=== PATIENT | female | born 1990 | race Hispanic/Latino ===

== ENCOUNTER → 2018-05-13 11:40 | Outpatient (CLI) | payer OTHER, MEDICAID, SELFPAY ==
--- NOTE | 2018-05-13 | DI.US.S_ITS ---
PROCEDURE: US OB <= 14 WEEKS FETUS INDICATIONS: SIZE AND DATES OUTSIDE/PRIOR DATING DATA: Last menstrual period (LMP): 03/25/18. LMP-based estimated date of delivery (DENYS): 12/30/17. First dating scan (date and location): 05/13/18. Estimated date of delivery (DENYS) from first dating scan: 01/05/19. TECHNIQUE: Real-time scanning was performed of the fetus and maternal pelvic organs, with image documentation. Endovaginal scanning was also performed to better visualize the fetus and maternal ovaries. COMPARISON: [facility], , OB COMPLETE 14WKS OR MORE, 03/30/2016, 17:04. FINDINGS: Embryo: [place]-rump length measures 5 mm corresponding to 6 weeks 1 day. Heart rate measures 123 beats per minute. Measurement variability in dating: +/- 4 weeks by LMP, +/- 7 days by mean sac diameter (use before 6 weeks gestation if crown-rump length not able to be measured), +/- 5 days by crown-rump length (up to 8 weeks 6 days gestation), +/- 7 days by crown-rump length (up to 13 weeks 6 days gestation). Maternal organs: Ovaries within normal limits. Limited images through the kidneys demonstrate no hydronephrosis. IMPRESSION: 6 week 1 day single living IUP. Dictated by: Deuce BRAVO Interpreted: Natasha Payne MD on 05/13/2018 at 14:06 Approved by: Prosper Paiz M.D. on 05/16/2018 at 10:59
== END ==
PROVIDERS: Visit Provider Nurse Practitioner Family
DX: Z36.89 Encounter for other specified antenatal screening (principal); Z3A.01 Less than 8 weeks gestation of pregnancy
CPT/HCPCS: 76801; 76817

== ENCOUNTER → 2018-08-04 16:05 | Outpatient (CLI) | payer OTHER, MEDICAID, SELFPAY ==
--- NOTE | 2018-08-04 | DI.US.S_ITS ---
PROCEDURE: US OB >= 14 WEEKS FETUS INDICATIONS: ANATOMY SCAN OUTSIDE/PRIOR DATING DATA: Last menstrual period (LMP): 03/25/18. LMP-based estimated date of delivery (DENYS): 12/30/17. First dating scan (date and location): 05/13/18. Estimated date of delivery (DENYS) from first dating scan: 01/05/19. TECHNIQUE: Real-time scanning was performed of the fetus, with image documentation and biometric measurements. Endovaginal scanning: No COMPARISON: [facility], OB <= 14 WEEKS FETUS, 05/13/2018, 12:14. FINDINGS: General: A single living intrauterine gestation is present. Presentation: Transverse Placenta: Placental position is posterior, and low lying with the inferior 2 cm above the internal cervical os. Amniotic fluid index: 11.2 cm, normal range is 5-24 cm. heart rate: 143 beats per minute. Maternal cervical canal: 4.7 cm long. Normal lower limit is 2.5 cm. biometrics: Biparietal diameter: 19 weeks 1 day Head circumference: 19 weeks 0 days Abdominal circumference: 19 weeks 2 days Femur length: 18 weeks 2 days Estimated gestational age from initial scan: 18 weeks 0 days Composite gestational age from present scan: 18 weeks 5 days Estimated weight and percentile: 262 g; 46 percentile Measurement variability for biometric dating: +/- 7 days from 14 weeks to 15 weeks 6 days gestation, +/- 10 days from 16 weeks to 21 weeks 6 days gestation, +/- 2 weeks from 22 weeks to 27 weeks 6 days gestation, +/- 3 weeks for 28 weeks gestation or later. weight reference: 4500 g or EFW >90/95% is considered macrosomia or large for gestational age. EFW <10% is small for gestational age. EFW 5% or less is considered intra-uterine growth restriction. Anatomic survey: Neuro: Ventricles are non-dilated at less than 10 mm. Cisterna magna is normal at 3-11 mm. Cerebellum is normal in size and morphology. Nuchal skin fold: Normal at less than 6 mm between 14-21 weeks gestational age. Face: Nose and lips, facial profile are normal. Spine: No evidence for spina bifida. Heart: 4-chambered heart is present, with normal ventricular outflow tracts. Diaphragm: Diaphragm is intact. Stomach: Left-sided stomach is present. Kidneys: No hydronephrosis. Normal is less than 5 mm in 2nd trimester, less than 7 mm in 3rd trimester. Cord: 3-vessel cord has orthotopic insertion. Bladder: Normal in size. Extremities: All 4 extremities identified. IMPRESSION: 1. Single living IUP redemonstrated and interval growth is normal. 2. Normal anatomic survey. 3. Low lying placenta. Followup recommended. Dictated by: Deuce Mackey [facility] Interpreted: Mark De La Rosa MD on 08/05/2018 at 9:29 Approved by: Mark De La Rosa M.D. on 08/05/2018 at 11:56
== END ==
PROVIDERS: Visit Provider Family Medicine
DX: Z36.89 Encounter for other specified antenatal screening (principal); Z3A.18 18 weeks gestation of pregnancy
CPT/HCPCS: 76811

== ENCOUNTER 2018-12-21 05:35 | Inpatient (IN) | payer OTHER, MEDICAID, SELFPAY ==
[2018-12-21 07:15] LABS: Add Manual Diff / Slide Review NO; Basophils Absolute Auto 0 /uL (0-100); Basophils Percent Auto 0.4 % (0-2); Eosinophils Absolute Auto 0 /uL (0-450); Eosinophils Percent Auto 0.6 % (2-4); Hematocrit 31.3 % (36-46); Hemoglobin 10.6 g/dL (12.0-16.0); Lymphocytes Absolute Auto 1900 /uL (1100-4500); Lymphocytes Percent Auto 24.7 % (25-40); Mean Corpuscular HGB Conc 33.9 % (30-36); Mean Corpuscular Hemoglobin 26.3 PG (26-34); Mean Corpuscular Volume 77.6 fL (80-100); Monocytes Absolute Auto 700 /uL (0-900); Monocytes Percent Auto 8.6 % (3-14); Neutrophils Absolute Auto 5100 /uL (1500-7000); Neutrophils Percent Auto 65.7 % (50-75); Platelet Count 189 X10^3/uL (150-400); Red Blood Cell Count 4.03 X10^6/uL (4.0-5.2); Red Cell Distribution Width 15.2 % (11.6-14.8); White Blood Cell Count 7.7 X10^3/uL (4.5-11.0)
--- NOTE | 2018-12-21 07:17 | SUR.OPER ---
Supine on Padded OR bed, head on pillow, safety belt at thigh, arms secured on padded arm boards at <90 degrees abduction. Bump under right buttock. Legs uncrossed with pillow under knees, gel pad to heels, tape over blanket to lower legs.
[2018-12-21 07:19] VITALS: BP 113/68
--- NOTE | 2018-12-21 07:41 | PM.OBHP.1 ---
OB HPI Date/Time Date of admission: 12/21/18 Date Patient Seen: 12/21/18 Time Patient Seen: 07:41 History of Present Condition Chief complaint: [id number] Repeat : 2 Para: 1 Estimated Date of Delivery: 12/30/18 Estimated Gestational Age (weeks): 39 Narrative: Britni Lopes is a 28 year old female 39 weeks estimated gestational age here for repeat . Patient is otherwise healthy. Has had no major problems. has been uncomplicated. No other medical complications or concerns. Indications Operative indications ( section): previous uterine surgery History of Present care: good care Dating criteria: LMP confirmed by 1st trimester US Ultrasounds: normal mid trimester US Obstetrical complications: none Medical complications: none Preadmission Labs Blood type: A (+) positive -: Antibody screen: negative, Cystic fibrosis screen: unknown, GBS status: negative, HBsAG: negative, HIV: negative, HSV 1: negative, HSV 2: negative and RPR/VDLR: negative -: Chlamydia screen: not detected and Gonorrhea screen: not detected -: Rubella: immune and Varicella: immune HCT: 31 HCAB: negative PAP: Normal Sequential screen: Is low risk 1 hr GTT: 115 Prior (ies) History: [id number] weeks gestation 36 hours of labor [facility] 8 lb 10 oz female Evaluation Evaluation Laboratory results: Laboratory Tests 12/21/18 06:10 WBC 7.7 RBC 4.03 Hgb 10.6 L Hct 31.3 L MCV 77.6 L MCH 26.3 MCHC 33.9 RDW 15.2 H Plt Count 189 Neut % (Auto) 65.7 Lymph % (Auto) 24.7 L [place] % (Auto) 8.6 Eos % (Auto) 0.6 L Baso % (Auto) 0.4 Neut # (Auto) 5100 Lymph # (Auto) 1900 [place] # (Auto) 700 Eos # (Auto) 0 Baso # (Auto) 0 PFSH Social History Smoking Status: Never smoker Social History Smoking Status: Never smoker Meds Home Medications Medication Instructions Recorded Confirmed Type [ Rx 1] 1 tab PO QDAY #0 08/27/16 12/21/18 Rx Allergies Allergy/AdvReac Type Severity Reaction Status Date / Time Penicillins [PENICILLINS] Allergy Mild rash Unverified 10/06/17 12:37 Review of Systems Review of Systems All systems reviewed & are unremarkable except as noted in HPI and below Exam Vital Signs (past 8 hours): - 12/21/18 07:19 Blood Pressure 113/68 Narrative Exam Narrative: Alert smiling female mildly anxious no acute distress Lungs are clear. Heart regular rate and rhythm. Abdomen is gravid vertex extremities without cyanosis clubbing edema. Normal reflexes Objective Labs Result Diagrams: 12/21/18 06:10 Labs: Laboratory Results - last 24 hr 12/21/18 06:10 WBC 7.7 RBC 4.03 Hgb 10.6 L Hct 31.3 L MCV 77.6 L MCH 26.3 MCHC 33.9 RDW 15.2 H Plt Count 189 Neut % (Auto) 65.7 Lymph % (Auto) 24.7 L [place] % (Auto) 8.6 Eos % (Auto) 0.6 L Baso % (Auto) 0.4 Neut # (Auto) 5100 Lymph # (Auto) 1900 [place] # (Auto) 700 Eos # (Auto) 0 Baso # (Auto) 0 Assessment and Plan Assessment and Plan Assessment and Plan narrative: Thirty-nine week estimated gestational age previous here for repeat section. Routine care
--- NOTE | 2018-12-21 07:47 | P.HPOB_ITS ---
OB HPI Date/Time Date of admission: 12/21/18 Date Patient Seen: 12/21/18 Time Patient Seen: 07:41 History of Present Condition Chief complaint: [id number] Repeat : 2 Para: 1 Estimated Date of Delivery: 12/30/18 Estimated Gestational Age (weeks): 39 Narrative: Britni Lopes is a 28 year old female 39 weeks estimated gestational age here for repeat . Patient is otherwise healthy. Has had no major problems. has been uncomplicated. No other medical complications or concerns. Indications Operative indications ( section): previous uterine surgery History of Present care: good care Dating criteria: LMP confirmed by 1st trimester US Ultrasounds: normal mid trimester US Obstetrical complications: none Medical complications: none Preadmission Labs Blood type: A (+) positive -: Antibody screen: negative, Cystic fibrosis screen: unknown, GBS status: negative, HBsAG: negative, HIV: negative, HSV 1: negative, HSV 2: negative and RPR/VDLR: negative -: Chlamydia screen: not detected and Gonorrhea screen: not detected -: Rubella: immune and Varicella: immune HCT: 31 HCAB: negative PAP: Normal Sequential screen: Is low risk 1 hr GTT: 115 Prior (ies) History: [id number] weeks gestation 36 hours of labor [facility] 8 lb 10 oz female Evaluation Evaluation Laboratory results: Laboratory Tests 12/21/18 06:10 WBC 7.7 RBC 4.03 Hgb 10.6 L Hct 31.3 L MCV 77.6 L MCH 26.3 MCHC 33.9 RDW 15.2 H Plt Count 189 Neut % (Auto) 65.7 Lymph % (Auto) 24.7 L [place] % (Auto) 8.6 Eos % (Auto) 0.6 L Baso % (Auto) 0.4 Neut # (Auto) 5100 Lymph # (Auto) 1900 [place] # (Auto) 700 Eos # (Auto) 0 Baso # (Auto) 0 PFSH Social History Smoking Status: Never smoker Social History Smoking Status: Never smoker Meds Home Medications Medication Instructions Recorded Confirmed Type [ Rx 1] 1 tab PO QDAY #0 08/27/16 12/21/18 Rx Allergies Allergy/AdvReac Type Severity Reaction Status Date / Time Penicillins [PENICILLINS] Allergy Mild rash Unverified 10/06/17 12:37 Review of Systems Review of Systems All systems reviewed & are unremarkable except as noted in HPI and below Exam Vital Signs (past 8 hours): - 12/21/18 07:19 Blood Pressure 113/68 Narrative Exam Narrative: Alert smiling female mildly anxious no acute distress Lungs are clear. Heart regular rate and rhythm. Abdomen is gravid vertex extremities without cyanosis clubbing edema. Normal reflexes Objective Labs Result Diagrams: 12/21/18 06:10 Labs: Laboratory Results - last 24 hr 12/21/18 06:10 WBC 7.7 RBC 4.03 Hgb 10.6 L Hct 31.3 L MCV 77.6 L MCH 26.3 MCHC 33.9 RDW 15.2 H Plt Count 189 Neut % (Auto) 65.7 Lymph % (Auto) 24.7 L [place] % (Auto) 8.6 Eos % (Auto) 0.6 L Baso % (Auto) 0.4 Neut # (Auto) 5100 Lymph # (Auto) 1900 [place] # (Auto) 700 Eos # (Auto) 0 Baso # (Auto) 0 Assessment and Plan Assessment and Plan Assessment and Plan narrative: Thirty-nine week estimated gestational age previous here for repeat section. Routine care
[2018-12-21] MEDS: CEFOTETAN 2 GM/50 ML PIGGYBACK IV (08:15)
--- NOTE | 2018-12-21 08:51 | SUR.OPER ---
VIABLE MALE INFANT DELIVERED AT 0836. PLACENTA AND CORD BLOOD TO OB WITH RN.
[2018-12-21] MEDS: LACTATED RINGERS 1,000 ML 100 ML IV (08:55)
[2018-12-21 09:26] VITALS: BP 103/54; PULSE 72; RESP 16; TEMP 36.1; O2SAT 97
[2018-12-21 09:30] VITALS: BP 110/70; PULSE 61; RESP 12; O2SAT 96
[2018-12-21 09:35] VITALS: BP 97/62; PULSE 62; RESP 10; O2SAT 95
--- NOTE | 2018-12-21 09:41 | PM.OP.1 ---
Operative Date/Time/Diagnoses Date of procedure: 12/21/18 Time of procedure: 09:41 Pre-op diagnosis: Thirty-nine weeks estimated gestational age no complications history of previous section Post-op diagnosis: same Procedure & Clinicians Procedure: Secondary low transverse section Same procedure as scheduled: Yes Indications: Previous uterine scar Surgeon: Osmin Amin Senior Quality Technician: Tami Austin Anesthesia Type: Spinal Operative Notes Findings: Viable male infant weighing 8 lb 4 oz Apgars 9 and 9 normal pelvic organs Closure Type: primary Specimen(s): other Applied: catheter Estimated Blood Loss (mL): 400 Blood products transfused: none Procedure in detail: Patient rediscussed consent and questions were answered. Patient was brought back to the operating theater and placed on the operative table. Anesthesia placed spinal without complications. She was laid back with excellent anesthesia and prepped and draped in usual manner. A Pfannenstiel incision was made through previous scar with sharp dissection to the midline. It was extended bluntly through the subcutaneous tissue. Small bleeder on left side was treated with cautery with excellent results. Minimal scarring. Fascia was then elevated and under direct visualization extended from the midline with curved is scissors. This was repeated on right side without complications. Superior aspect was easily elevated and bluntly dissected off the muscle layer. This was then repeated inferiorly without complications. Midline muscle layer was then entered with blunt dissection using hemostats. At the superior aspect. We has moved into the peritoneum through the scar tissue. Small window was opened and then bluntly dissected apart. Bladder blade was then placed. Bladder flap was then incised and developed. Bladder blade was then placed. Scalp was then used to score uterine incision low transfers. We was then removed through the midline until clear fluid was noted. The incision was extended laterally. Baby's head was then attempted to be delivered without significant attempt. Vacuum was applied and easily child was then delivered. Cord was clamped. Child was crying immediately. Bulb suctioned mouth and nose. Handed off to nurse. Placenta was then delivered spontaneous after cord bloods were obtained. Dry lap sponge was then used to swipe inside of uterine incision times to for products of conception. Uterine incision was then grasped with ring forceps on each side. Along with inferior aspect of the incision. Ring forceps was then passed through the vagina and handed off the operating theater. The uterine incision was then closed with locked 0 chromic. This was repeated with a non locked 0 chromic although left-sided incision had a small bleeder and this was locked to control bleeding. With excellent results. This is also on the right corner similar and was locked. Excellent hemostasis. Irrigation was done. Evaluated ovaries and fallopian tubes which were found to be normal bilaterally. Re-evaluated incision which was dry. Bladder blade was then removed bladder flap was then closed with 3 0 Vicryl running. Peritoneum was then closed with running 2 0 Vicryl. Fascia was then closed with running 0 Vicryl. Irrigation was then done to the subcutaneous tissue. Removed. 330 Vicryl interrupted sutures were used to approximate the wound. Wound was closed with running 4 0 Vicryl subcuticular. Steri-Strips and dressing was applied. All sponge instrument and needle counts were correct. EBL 400 cc. Mother and infant stable condition. Complications: none Condition: stable Plan for aftercare: To Labor and delivery for routine care
[2018-12-21] MEDS: ONDANSETRON 4 MG/2 ML INJ IV (09:48)
[2018-12-21 09:50] VITALS: BP 108/76; PULSE 73; RESP 21; TEMP 36; O2SAT 96
[2018-12-21] MEDS: METOCLOPRAMIDE 10 MG/2 ML INJ IV ×2 (09:59→15:02)
[2018-12-21 10:01] VITALS: BP 109/75; PULSE 62; RESP 10; O2SAT 97
[2018-12-21] MEDS: NALBUPHINE 20 MG/ML AMPUL 5 MG IV (10:36)
[2018-12-21] MEDS: KETOROLAC 30 MG/ML VIAL IV ×3 (10:36→23:02)
[2018-12-21] MEDS: DEXTROSE 5%-LACTATED RINGERS 1,000 ML 125 ML IV (17:06)
[2018-12-22] MEDS: KETOROLAC 30 MG/ML VIAL IV (05:10)
[2018-12-22 06:22] LABS: Hematocrit 28.5 % (36-46); Hemoglobin 9.6 g/dL (12.0-16.0)
--- NOTE | 2018-12-22 08:21 | PM.PN.1 ---
Subjective Date Patient Seen: 12/22/18 Time Patient Seen: 08:21 Interval history: Feeling overall pretty well. No major issues. Pain is well controlled. Bleeding is minimal. is going well. No other changes or complaints. Exam Vital Signs (past 8 hours): Oxygen Delivery Method Room Air Narrative Exam Narrative: Alert smiling female no acute distress Lungs clear. Heart regular rate and rhythm. Abdomen mildly distended soft positive bowel sounds he versus firm incision is clean and dry. Extremities without cyanosis clubbing edema. Objective Labs Result Diagrams: 12/22/18 06:00 Labs: Laboratory Results - last 24 hr 12/21/18 12/22/18 06:10 06:00 Hgb 9.6 L Hct 28.5 L Blood Type A Positive Antibody Screen Negative Assessment & Plan Assessment & Plan narrative: Postop day 1. Doing well. Overall no major issues or complaints. Routine care. Follow-up a.m.
[2018-12-22] MEDS: IBUPROFEN 600 MG TABLET PO (14:00)
[2018-12-22] MEDS: DOCUSATE 250 MG CAPSULE PO (14:00)
[2018-12-22 19:54] VITALS: TEMP 36.9
[2018-12-22] MEDS: HYDROMORPHONE 4 MG TABLET PO (19:54)
[2018-12-23] MEDS: HYDROMORPHONE 4 MG TABLET PO ×2 (02:16→08:50)
[2018-12-23] MEDS: DOCUSATE 250 MG CAPSULE PO (08:02)
[2018-12-23] MEDS: IBUPROFEN 600 MG TABLET PO (08:02)
--- NOTE | 2018-12-23 08:53 | P.DS_ITS ---
Discharge Providers Date of admission: 12/21/18 05:35 Discharge Date: 12/23/18 Primary care physician: Osmin Amin MD Consults: 12/21/18 10:19 Consult to Sanitation Manager Routine Comment: Discharge provider: Gudelia Colon MD Summary Time Spent with Patient Total time spent providing and/or coordinating discharge services:30 minutes Objective Labs Result Diagrams: 12/22/18 06:00 Exam Vital Signs (past 8 hours): Oxygen Delivery Method Room Air Narrative Exam Narrative: Alert and oriented x3 Neck is supple Chest clear to auscultation Cor regular rate and rhythm without murmur Abdomen: Incision clean and dry, positive bowel sounds, soft, uterus firm and below the umbilicus Extremities: No edema, DTRs are intact Discharge Plan Discharge Plan Patient Disposition: Home Discharge Med Rec/Prescriptions Prescriptions: New ibuprofen 600 mg Tablet 600 mg PO Q6HR PRN (Reason: As Needed For Fever/Mild Pain) Qty: 60 RF: 0 hydromorphone 4 mg Tablet 4 mg PO Q6HR PRN (Reason: Pain, Severe (7-10)) Qty: 40 RF: 0 Continued [ Rx 1] 1 tab PO QDAY Qty: 0 RF: 0 Follow up/Referrals: Osmin Amin MD [Primary Care Provider] - Discharge Data Primary Care Provider: Osmin Amin Attending Provider: Osmin Amin Admit Date/Time: 12/21/18 05:35
[2018-12-23 10:19] VITALS: BP 116/73; PULSE 68; RESP 16; TEMP 36.8
[2018-12-23] MEDS: MEASLES,MUMPS,RUBELLA VACC/PF 0.5 ML VIAL SUBCUT (12:43)
== END 2018-12-23 13:00 | disposition home or self-care (01) | DRG 540 ==
PROVIDERS: Admitting Provider Family Medicine; PCP Family Medicine; Visit Provider Family Medicine
PROC: 10D00Z1 Extraction of Products of Conception, Low, Open Approach (ICD-10-PCS; CPT 59514; principal; 2018-12-21 07:45)
DX: O34.219 Maternal care for unspecified type scar from previous cesarean delivery (principal); Z3A.39 39 weeks gestation of pregnancy; Z37.0 Single live birth
CPT/HCPCS: 36415; 59050; 85014; 85018; 85025; 86850; 86900; 86901; J1885; J2274; J2300; J2405; J2765; J7121

== ENCOUNTER → 2020-05-26 09:09 | Outpatient (CLI) | payer OTHER, SELFPAY | PROVIDERS: PCP Family Medicine; Visit Provider Nurse Practitioner | DX: N30.00 Acute cystitis without hematuria (principal) | CPT/HCPCS: 87077; 87086; 87186 ==

== ENCOUNTER → 2021-01-03 16:09 | Outpatient (CLI) | payer OTHER, SELFPAY ==
--- NOTE | 2021-01-03 16:12 | DI.US.S_ITS ---
PROCEDURE: US OB <= 14 WEEKS FETUS INDICATIONS: SIZE AND DATES OUTSIDE/PRIOR DATING DATA: Last menstrual period (LMP): 11/19/2020. LMP-based estimated date of delivery (DENYS): 08/26/2021. First dating scan (date and location): [facility], 01/03/2021. Estimated date of delivery (DENYS) from first dating scan: 08/23/2021. TECHNIQUE: Real-time scanning was performed of the fetus and maternal pelvic organs, with image documentation. Endovaginal scanning was also performed to better visualize the fetus and maternal ovaries. COMPARISON: None from this . FINDINGS: Embryo: A single live intrauterine is seen. The measured heart rate is 136 beats per minute. The crown-rump length measures 0.9 cm, corresponding to an estimated gestational age of 6 weeks 6 days. It is too early for detailed anatomic assessment. By visual inspection, the amount of amniotic fluid is within normal limits. No significant findings of subchorionic/perigestational hemorrhage are seen. Measurement variability in dating: +/- 4 weeks by LMP, +/- 7 days by mean sac diameter (use before 6 weeks gestation if crown-rump length not able to be measured), +/- 5 days by crown-rump length (up to 8 weeks 6 days gestation), +/- 7 days by crown-rump length (up to 13 weeks 6 days gestation). Maternal organs: Ovaries are within normal limits. IMPRESSION: A single live intrauterine is seen. No significant discrepancy is found between the estimated gestational age based on these images and the estimated gestational age based upon the given date of the last menstrual period. Dictated by: Negro Finn M.D. on 01/03/2021 at 16:32 Approved by: Negro Finn M.D. on 01/03/2021 at 16:33
== END ==
PROVIDERS: PCP Family Medicine; Referring Provider Family Medicine; Visit Provider Family Medicine
DX: Z36.87 Encounter for antenatal screening for uncertain dates (principal); Z3A.01 Less than 8 weeks gestation of pregnancy
CPT/HCPCS: 76801; 76817

== ENCOUNTER → 2021-01-22 16:01 | Outpatient (CLI) | payer OTHER, SELFPAY ==
--- NOTE | 2021-01-22 | DI.US.S_ITS ---
PROCEDURE: US OB <= 14 WEEKS FETUS INDICATIONS: INVITROFERTILIZATION. FOLLOW UP SIZE AND DATES OUTSIDE/PRIOR DATING DATA: Last menstrual period (LMP): November 19, 2020 LMP-based estimated date of delivery (DENYS): August 26, 2021 First dating scan (date and location): January 03, 2021 Estimated date of delivery (DENYS) from first dating scan: August 23, 2021 TECHNIQUE: Real-time scanning was performed of the fetus and maternal pelvic organs, with image documentation. Endovaginal scanning was also performed to better visualize the fetus and maternal ovaries. COMPARISON: [facility], OB <= 14 WEEKS FETUS, 01/03/2021, 15:30. FINDINGS: Embryo: Single living intrauterine identified. Yolk sac is identified. pole is identified. [place]-rump length measures 2.7 centimeters corresponding to ultrasound estimated gestational age of 9 weeks 3 days. There is a small 2.8 x 3.2 x 2.3 centimeter subchorionic, periimplantational bleed. Heart rate: 160 beats per minute Measurement variability in dating: +/- 4 weeks by LMP, +/- 7 days by mean sac diameter (use before 6 weeks gestation if crown-rump length not able to be measured), +/- 5 days by crown-rump length (up to 8 weeks 6 days gestation), +/- 7 days by crown-rump length (up to 13 weeks 6 days gestation). Maternal organs: 0.5 x 0.6 x 0.4 centimeter slightly hyperechoic lesion noted in the right ovary which may represent involuting corpus luteal cyst. IMPRESSION: 1. Single living intrauterine with ultrasound estimated gestational age of 9 weeks 3 days in the current study and expected age of 9 weeks 4 days based on initial ultrasound. 2. Small 2.8 x 3.2 x 2.3 centimeter subchorionic, periimplantational bleed. Recommend follow-up imaging in 2 weeks. Dictated by: Jody Zurita MD, PhD on 01/22/2021 at 16:46 Approved by: Jody Zurita MD, PhD on 01/22/2021 at 16:50
== END ==
PROVIDERS: PCP Family Medicine; Referring Provider Family Medicine; Visit Provider Family Medicine
DX: Z36.87 Encounter for antenatal screening for uncertain dates (principal); O20.8 Other hemorrhage in early pregnancy; Z3A.09 9 weeks gestation of pregnancy
CPT/HCPCS: 76801; 76817

== ENCOUNTER → 2021-02-12 07:26 | Outpatient (CLI) | payer OTHER, SELFPAY ==
--- NOTE | 2021-02-12 | DI.US.S_ITS ---
PROCEDURE: US OB <= 14 WEEKS FETUS INDICATIONS: 2 WEEK FOLLOW UP OUTSIDE/PRIOR DATING DATA: Last menstrual period (LMP): 11/19/20 LMP-based estimated date of delivery (DENYS): 08/26/21. First dating scan (date and location): 01/03/21. Estimated date of delivery (DENYS) from first dating scan: 08/23/21. TECHNIQUE: Real-time scanning was performed of the fetus and maternal pelvic organs, with image documentation. Endovaginal scanning was also performed to better visualize the fetus and maternal ovaries. COMPARISON: [facility], OB <= 14 WEEKS FETUS, 01/22/2021, 16:09. [facility], OB <= 14 WEEKS FETUS, 01/03/2021, 15:30. FINDINGS: Embryo: 6.7 cm crown-rump length correlates with a gestational age of 13 weeks 0 days. Current projected gestational age from initial ultrasound is 12 weeks 4 days +/-10 days and the current estimated gestational age from crown-rump length is 13 weeks 0 days +/-10 days. Therefore there has been appropriate interval growth . Heart rate: 153 beats per minute Measurement variability in dating: +/- 4 weeks by LMP, +/- 7 days by mean sac diameter (use before 6 weeks gestation if crown-rump length not able to be measured), +/- 5 days by crown-rump length (up to 8 weeks 6 days gestation), +/- 7 days by crown-rump length (up to 13 weeks 6 days gestation). Maternal organs: Resolving ruptured corpus luteum cyst right ovary. Resolution of perigestational hemorrhage previously identified. IMPRESSION: Appropriate interval growth, resolution of small perigestational hemorrhage previously noted. Involuting ruptured corpus luteum cyst right ovary. Dictated by: Mark De La Rosa M.D. on 02/12/2021 at 10:28 Approved by: Mark De La Rosa M.D. on 02/12/2021 at 10:32
== END ==
PROVIDERS: PCP Family Medicine; Referring Provider Family Medicine; Visit Provider Family Medicine
DX: Z36.2 Encounter for other antenatal screening follow-up (principal); O09.811 Supervision of pregnancy resulting from assisted reproductive technology, first trimester; O34.81 Maternal care for other abnormalities of pelvic organs, first trimester; N83.11 Corpus luteum cyst of right ovary; Z3A.13 13 weeks gestation of pregnancy
CPT/HCPCS: 76801; 76817

== ENCOUNTER → 2021-04-11 10:37 | Outpatient (CLI) | payer OTHER, SELFPAY ==
--- NOTE | 2021-04-11 | DI.US.S_ITS ---
PROCEDURE: US OB >= 14 WEEKS FETUS INDICATIONS: ANATOMY. SURROGATE. OUTSIDE/PRIOR DATING DATA: Last menstrual period (LMP): November 19, 2020 . LMP-based estimated date of delivery (DENYS): August 26, 2021 . First dating scan (date and location): [facility]; January 03, 2021 . Estimated date of delivery (DENYS) from first dating scan: August 23, 2021 . TECHNIQUE: Real-time scanning was performed of the fetus, with image documentation and biometric measurements. COMPARISON: [facility], , OB >= 14 WEEKS FETUS, 08/04/2018, 16:24. FINDINGS: General: A single living intrauterine gestation is present. Presentation: Variable. Placenta: Placental position is anterior , without previa. Amniotic fluid index: 11.8 cm, normal range is 5-24 cm. heart rate: 147 beats per minute. Maternal cervical canal: For cm long. Normal lower limit is 2.5 cm. biometrics: Biparietal diameter: 4.6 cm Head circumference: 17.6 cm Abdominal circumference: 15.7 cm Femur length: 3.4 cm Estimated gestational age from initial scan: not applicable. Composite gestational age from present scan: 20 weeks, 3 days Estimated weight and percentile: 371 g +/-55 g; 36 percentile Measurement variability for biometric dating: +/- 7 days from 14 weeks to 15 weeks 6 days gestation, +/- 10 days from 16 weeks to 21 weeks 6 days gestation, +/- 2 weeks from 22 weeks to 27 weeks 6 days gestation, +/- 3 weeks for 28 weeks gestation or later. weight reference: 4500 g or EFW >90/95% is considered macrosomia or large for gestational age. EFW <10% is small for gestational age. EFW 5% or less is considered intra-uterine growth restriction. Anatomic survey: Neuro: Ventricles are non-dilated at less than 10 mm. Cisterna magna is normal at 3-11 mm. Cerebellum is normal in size and morphology. Nuchal skin fold: Normal at less than 6 mm between 14-21 weeks gestational age. Face: Nose and lips, facial profile are normal where seen. Spine: No evidence for spina bifida. Heart: 4-chambered heart is present, with normal ventricular outflow tracts. Diaphragm: Diaphragm is intact. Stomach: Left-sided stomach is present. Kidneys: No hydronephrosis. Normal is less than 5 mm in 2nd trimester, less than 7 mm in 3rd trimester. Cord: 3-vessel cord has orthotopic insertion. Bladder: Normal in size. Extremities: All 4 extremities identified. IMPRESSION: Live single intrauterine gestation as detailed above. Dictated by: Miki Curry M.D. on 04/11/2021 at 12:16 Approved by: Miki Curry M.D. on 04/11/2021 at 12:21
== END ==
PROVIDERS: PCP Family Medicine; Referring Provider Family Medicine; Visit Provider Family Medicine
DX: Z36.89 Encounter for other specified antenatal screening (principal); Z3A.20 20 weeks gestation of pregnancy
CPT/HCPCS: 76811

== ENCOUNTER → 2021-07-30 16:29 | Outpatient (ROUT) | payer OTHER, SELFPAY | PROVIDERS: PCP Family Medicine; Visit Provider Family Medicine | DX: Z36.85 Encounter for antenatal screening for Streptococcus B (principal) | CPT/HCPCS: 87081 ==

== ENCOUNTER → 2021-08-01 12:37 | Outpatient (CLI) | payer OTHER, SELFPAY ==
--- NOTE | 2021-08-01 12:40 | DI.US.S_ITS ---
PROCEDURE: US OB LIMITED INDICATIONS: AMINA AND GROWTH. OUTSIDE/PRIOR DATING DATA: Last menstrual period (LMP): February 19, 2021. LMP-based estimated date of delivery (DENYS): August 26, 2021. First dating scan (date and location): January 03, 2021. Estimated date of delivery (DENYS) from first dating scan: August 23, 2021. The calculations are made using the ultrasound DENYS of August 23, 2021. TECHNIQUE: Real-time scanning was performed of the fetus, with image documentation and biometric measurements. Endovaginal scanning: Not performed COMPARISON: None. FINDINGS: General: A single living intrauterine gestation is present. Presentation: Vertex. Placenta: Placental position is anterior , without previa. Amniotic fluid index: 24.3 cm, normal range is 5-24 cm. Single deepest vertical pocket is 7.8 cm. heart rate: 130 beats per minute. Maternal cervical canal: Maternal cervix not visualized secondary to advanced gestational age and presentation. biometrics: Biparietal diameter: 9.2 cm, correlating with 37 weeks and 2 days Head circumference: 32.8 cm, correlating with 37 weeks and 1 day Abdominal circumference: 32.3 cm, correlating with 36 weeks and 2 days Femur length: 7.1 cm, correlating with 36 weeks and 2 days Estimated gestational age from initial ultrasound: 36 weeks and 6 days Composite gestational age from present scan: 36 weeks and 5 days Estimated weight and percentile: 2946 g which correlates with the 45th percentile based off gestational age Other: Not applicable. IMPRESSION: Single living intrauterine gestation with estimated sonographic gestational age of approximately 36 weeks and 5 days. Expected interval growth has occurred. Four-quadrant AMINA measuring 24.3 cm with largest vertical pocket of 7.8 cm. We strive to produce accurate, complete, and clear reports of imaging services. To assist us in improving patient care, this report was composed using standard report templates and voice recognition software. Therefore, it may contain abnormal punctuation, insertions and/or omissions. Occasional wrong-word or sound-alike substitutions may occur. Though we review the report and make efforts to correct it, we do recommend that the report be read carefully in proper context to recognize any text inaccuracies. Dictated by: Cleveland Bonilla M.D. on 08/01/2021 at 17:25 Approved by: Cleveland Bonilla M.D. on 08/01/2021 at 17:28
== END ==
PROVIDERS: PCP Family Medicine; Referring Provider Student in an Organized Health Care Education/Training Program; Visit Provider Student in an Organized Health Care Education/Training Program
DX: O09.813 Supervision of pregnancy resulting from assisted reproductive technology, third trimester (principal); Z86.16 Personal history of COVID-19; Z36.89 Encounter for other specified antenatal screening; Z3A.36 36 weeks gestation of pregnancy
CPT/HCPCS: 76815

== ENCOUNTER → 2021-08-08 07:05 | Outpatient (CLI) | payer OTHER, SELFPAY ==
--- NOTE | 2021-08-08 07:18 | DI.US.S_ITS ---
PROCEDURE: US OB BIOPHYSICAL PROFILE INDICATIONS: BPP OUTSIDE/PRIOR DATING DATA: Last menstrual period (LMP): 02/19/2021 LMP-based estimated date of delivery (DENYS): 08/26/2021. First dating scan (date and location): 01/03/2021. Estimated date of delivery (DENYS) from first dating scan: 08/23/2021. The calculations are made using the ultrasound DENYS of 08/23/2021. TECHNIQUE: Real-time scanning was performed of the fetus, with image documentation and biometric measurements. Biophysical profile was also obtained. COMPARISON: [facility], OB LIMITED, 08/01/2021, 13:04. FINDINGS: General: A single living intrauterine gestation is present. Presentation: Vertex. Placenta: Placental position is anterior , without previa. Amniotic fluid index: 21.6 cm, normal range is 5-24 cm. heart rate: 165 beats per minute. Maternal cervical canal: Not well seen Clinically estimated gestational age: 37 weeks 6 days Biophysical profile: Tone: 2 points. Movement: 2 points. Respiration: 2 points. Largest pocket of fluid: 2 points. Umbilical artery Doppler: Not evaluated. IMPRESSION: Single living IUP redemonstrated and biophysical profile is normal with score of 8/8 possible points. We strive to produce accurate, complete, and clear reports of imaging services. To assist us in improving patient care, this report was composed using standard report templates and voice recognition software. Therefore, it may contain abnormal punctuation, insertions and/or omissions. Occasional wrong-word or sound-alike substitutions may occur. Though we review the report and make efforts to correct it, we do recommend that the report be read carefully in proper context to recognize any text inaccuracies. Dictated by: Deuce BRAVO Interpreted: Jared Schwartz MD on 08/08/2021 at 14:31 Approved by: Jared Schwartz M.D. on 08/08/2021 at 16:49
== END ==
PROVIDERS: PCP Family Medicine; Referring Provider Student in an Organized Health Care Education/Training Program; Visit Provider Student in an Organized Health Care Education/Training Program
DX: O09.819 Supervision of pregnancy resulting from assisted reproductive technology, unspecified trimester (principal); Z3A.37 37 weeks gestation of pregnancy; Z86.16 Personal history of COVID-19
CPT/HCPCS: 76819

== ENCOUNTER 2021-08-08 07:40 | Outpatient (CLI) | payer OTHER, SELFPAY | END 2021-08-08 08:15 | disposition home or self-care (01) | LOC: LABOR 08:44 → OB 08-11 07:25 | PROVIDERS: PCP Family Medicine; Referring Provider Student in an Organized Health Care Education/Training Program; Visit Provider Student in an Organized Health Care Education/Training Program | DX: O40.3XX0 Polyhydramnios, third trimester, not applicable or unspecified (principal); Z3A.37 37 weeks gestation of pregnancy; O09.819 Supervision of pregnancy resulting from assisted reproductive technology, unspecified trimester; Z86.16 Personal history of COVID-19 | CPT/HCPCS: 59025; 76819; G0378; G0379 ==

== ENCOUNTER 2021-08-11 08:22 | Outpatient (CLI) | payer OTHER, SELFPAY | END 2021-08-11 09:17 | disposition home or self-care (01) | LOC: LABOR 08:51 → OB 08-12 07:13 | PROVIDERS: PCP Family Medicine; Referring Provider Student in an Organized Health Care Education/Training Program; Visit Provider Student in an Organized Health Care Education/Training Program | DX: O40.3XX0 Polyhydramnios, third trimester, not applicable or unspecified (principal); Z3A.37 37 weeks gestation of pregnancy | CPT/HCPCS: 59025; G0378; G0379 ==

== ENCOUNTER → 2021-08-14 13:57 | Outpatient (CLI) | payer OTHER, SELFPAY ==
--- NOTE | 2021-08-14 | DI.US.S_ITS ---
PROCEDURE: US OB LIMITED INDICATIONS: AMINA, EFW OUTSIDE/PRIOR DATING DATA: Last menstrual period (LMP): 11/19/20. LMP-based estimated date of delivery (DENYS): 08/26/21. First dating scan (date and location): 01/03/21. Estimated date of delivery (DENYS) from first dating scan: 08/23/21. The calculations are made using the ultrasound DENYS of 08/23/21. TECHNIQUE: Real-time scanning was performed of the fetus, with image documentation. Endovaginal scanning: Not performed COMPARISON: [facility], OB LIMITED, 08/01/2021, 13:04. FINDINGS: A single living intrauterine gestation is present. Presentation: Vertex. Placenta: Placental position is anterior, without previa. Amniotic fluid index: 29.5 cm, normal range is 5-24 cm. Single deepest vertical pocket is 8.1 cm. heart rate: 160 beats per minute. Maternal cervical canal: Not seen Biparietal diameter 9.4 cm, 38 weeks, 0 days Head circumference 33.9 cm, 38 weeks, six days Abdominal circumference 35 0.8 cm, 39 weeks, five days Femur length 7.6 cm, 38 weeks, six days Clinically estimated gestational age: 38 weeks, five days Estimated gestational age from initial scan: 38 weeks, six days. Estimated weight 3715 g, 78th percentile IMPRESSION: 1. Single living intrauterine with appropriate growth. 2. Estimated weight is at the 70th percentile. 3. Amniotic fluid index is 29.5 cm and deepest pocket is 8.1 cm. Dictated by: Angelica Castrejon M.D. on 08/14/2021 at 17:06 Approved by: Angelica Castrejon M.D. on 08/14/2021 at 17:13
== END ==
PROVIDERS: PCP Family Medicine; Referring Provider Student in an Organized Health Care Education/Training Program; Visit Provider Student in an Organized Health Care Education/Training Program
DX: O09.93 Supervision of high risk pregnancy, unspecified, third trimester (principal); Z86.16 Personal history of COVID-19; Z3A.38 38 weeks gestation of pregnancy
CPT/HCPCS: 76815

== ENCOUNTER 2021-08-14 13:59 | Outpatient (CLI) | payer OTHER, SELFPAY | END 2021-08-14 14:36 | disposition home or self-care (01) | LOC: LABOR 14:02 → OB 08-19 12:40 | PROVIDERS: PCP Family Medicine; Referring Provider Student in an Organized Health Care Education/Training Program; Visit Provider Student in an Organized Health Care Education/Training Program | DX: O09.93 Supervision of high risk pregnancy, unspecified, third trimester (principal); O40.3XX0 Polyhydramnios, third trimester, not applicable or unspecified; Z86.16 Personal history of COVID-19; Z3A.38 38 weeks gestation of pregnancy | CPT/HCPCS: 59025; 76815; G0378; G0379 ==

== ENCOUNTER 2021-08-19 05:37 | Inpatient (IN) | payer OTHER, SELFPAY ==
[2021-08-19] VITALS (7 sets, daily range): BP systolic 98–119; BP diastolic 56–75; PULSE 59–70; RESP 14–16; TEMP 35.6–36.6; O2SAT 95–96
--- NOTE | 2021-08-19 05:46 | PM.OBHP.1 ---
OB HPI Date/Time Date of admission: 08/19/21 Date Patient Seen: 08/19/21 History of Present Condition Chief complaint: INPT Narrative: Britni Naqvi is a 30 year old female with DENYS of 08/23/21 per first trimester ultrasound. She presents for sceduled repeat . Britni is a surrogate and is via IVF. The biological parents are present today and the fetus is a result of their embryo. Her course has been complicated by mild COVID at 32 weeks that completely resolved. Viral surveillance testing following her recovery showed borderline polyhydramnios at 36w3d, AMINA 24.3/DVP 7.8 cm. BPP at 37w6 was 8/8 with an AMINA of 21.6. AMINA at 38w5d was 29.5 with a DVP of 8.1 cm. She has been asymptomatic and non-stress tests have been reactive and reassuring throughout. 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 She has been euthyroid throughout her with a TSH of 2.6 on 03/12/21, 2.53 on 06/04/21, and 2.33 on 08/13/21. LABS/IMAGING: ABO A positive, antibody negative on 03/12/21. Rubella immune. Hepatitis-B surface antigen negative. HIV and HSV 2 negative. GC/chlamydia negative on 05/31/20. Treponemal antibody negative. Varicella titer negative. Pap smear negative on . Urine culture negative on 03/12/21. Hemoglobin/hematocrit 13.2/38.1 on 03/12/21. Repeat hemoglobin/hematocrit 12.1/35.0 on 08/13/21. TSH within normal limits. 1 hour Glucola negative on 06/17/22. GBS negative on 07/30/21. NIPT negative, 03/12/21, sex not tested. Dating US: 03/12/21, DENYS 08/23/21 Anatomy Scan: 04/11/21, normal COVID Surveillance Scans: 08/01/21 (AMINA 24.3/DVP 7.8); 08/08/21 (AMINA 21.6, BPP 8/8), 08/14/21 (AMINA 29.5/DVP 8.1 cm) OBSTETRIC HISTORY: 08/24/16: Viable female born post-term, 8 lb 10 oz, APGARS 9/9, primary LTCS secondary to distress, no complications. 12/21/18: Viable male born at term, 8 lb 4 oz, APGAS 9/9, repeat LTCS, no complications. GYNECOLOGICAL HISTORY: Chlamydia, 2016 PAST MEDICAL HISTORY: Fallon's Thyroidits PAST SURGICAL HISTORY: x 2 FAMILY HISTORY: Noncontributory SOCIAL HISTORY: . 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 Surrogate; biological parents involved and supportive. No alcohol, drugs, or tobacco. [facility] Medical History No significant medical problems Social History Smoking Status: Never smoker Meds Home Medications and Allergies Home Medications Medication Instructions Recorded Confirmed Type [ Rx 1] 1 tab PO QDAY #0 08/27/16 08/19/21 Rx Allergies Allergy/AdvReac Type Severity Reaction Status Date / Time Penicillins [PENICILLINS] Allergy Mild rash Verified 05/26/20 08:56 Review of Systems Review of Systems Narrative: All remaining ROS were reviewed and negative except as addressed. OB Exam Narrative Exam Narrative: General: NAD Skin: Color unremarkable, no rash nor lesions HEENT: Neck supple with midline trachea Lungs: CTAB Heart: Normal rate, and regular rhythm, S1, S2 normal, no murmur, click, rub or gallop Abdomen: Gravid, soft, non-tender Extremities: No cord, no edema, no cyanosis Pelvis: Normal female external genitalia Presentation: vertex Monitoring: Variability: Moderate Baseline: 120s Accelerations: Present Decelerations: Absent Contractions: Intermittent Strength: Moderate Objective Labs Result Diagrams: 08/19/21 07:10 Assessment and Plan Assessment and Plan Assessment and Plan narrative: 1. IUP at 39w3d 2. 3. Repeat , elective 4. Polyhydramnios, mild, asymptomatic, post-COVID 5. Fallon's Thyroiditis, euthyroid 6. History of COVID during third trimester, resolved 7. Surrogate Plan: Admit to Labor and delivery for scheduled with routine orders. Questions answered, appropriate consents will be signed.
--- NOTE | 2021-08-19 06:43 | P.OP_ITS ---
Operative Date/Time/Diagnoses Date of procedure: 08/19/21 Procedure & Clinicians Procedure: Pre-operative Diagnosis: 1. IUP at 39w3d 2. 3. Repeat 4. Borderline Polydramnios, asymptomatic, post-COVID 5. Fallon's Thyroiditis, chronic, euthyroid 6. History of COVID during third trimester, resolved 7. Surrogate Post-operative Diagnosis: Same Procedure: 1. Repeat low transverse section 2. Revision of previous scar Surgeon: Tami Austin M.D. Operations Associate: Yarelis Yanes MD Anesthesia: Spinal Complications: None Estimated blood loss: 600 cc Fluids: 1500 cc crystalloid Urine output: 400 cc clear urine at end of procedure. Indications: 30-year-old at 39w3d. Findings: Viable female infant in vertex presentation. Clear fluid with no cords. Apgars 9 and 9. Weight 7 lb 4.8 oz. Normal uterus tubes and ovaries. Procedures: The patient was taken to the operating room where spinal anesthesia was found to be adequate. She was then prepared and draped in the normal sterile fashion in the dorsal supine position with a leftward tilt. A Pfannenstiel skin incision was made with a scalpel around the old scar, completely removing the old scar. Then the incision was carried through to the underlying layer of fascia. The fascia was incised in the midline and the incision extended laterally with Gomez scissors. The superior aspect of the fascial incision was then grasped with the Alfredo clamps elevated, and the underlying rectus muscles dissected off bluntly. Attention was then turned to the inferior aspect of this incision, which in a similar fashion, was grasped, tented up with the Alfredo clamps, and the rectus muscle dissected off bluntly. The rectus muscles were then in the midline, and the peritoneum identified, tented up, and entered sharply with Metzenbaum scissors. The peritoneal incision was then extended superiorly and inferiorly with good visualization of the bladder. The bladder blade was then inserted and the vesicouterine peritoneum identified, grasped with pickups, and entered sharply with Metzenbaum scissors. This incision was then extended laterally and the bladder flap created digitally. The bladder blade was then reinserted and the lower uterine uterine segment incised in a transverse fashion with the scalpel. The lower uterine segment was noted to be very thin at the site of the previous hysterotomy. The uterine incision was then extended laterally, digitally. The bladder blade was removed and the infant's head delivered atraumatically. The nose and mouth were suctioned with DeLee suction trap and the cord clamped and cut. They infant was handed off to the nurses in attendance. The placenta was then removed manually and the uterus cleared of all clots and debris. The uterine incision was repaired with 0 chromic in a running locking fashion. A second layer of the same suture was used to obtain excellent hemostasis. The bladder flap was repaired with 3-0 Vicryl in a running stitch. The gutters were cleared of all clots and the peritoneum closed with 3-0 Vicryl. The rectus was loosely approximated using 0 chromic. The fascia was reapproximated with 0 Vicryl in a running fashion. The subcutaneous layer was closed with 2-0 chromic. The skin was closed with 4-0 monocryl with a running subcuticular and the incision dressed with an Aquecel dressing. The patient tolerated the procedure well. Sponge lap and needle counts were correct x2. Clindaymycin and gentamycin was given at beginning a procedure. The patient was taken to the recovery room in stable condition. Same procedure as scheduled: Yes
[2021-08-19 07:29] LABS: Add Manual Diff / Slide Review NO; Basophils Absolute Auto 100 /uL (0-100); Basophils Percent Auto 0.6 % (0-2); Eosinophils Absolute Auto 100 /uL (0-450); Eosinophils Percent Auto 1.1 % (2-4); Hematocrit 34.8 % (36-46); Hemoglobin 11.7 g/dL (12.0-16.0); Lymphocytes Absolute Auto 1800 /uL (1100-4500); Lymphocytes Percent Auto 18.3 % (25-40); Mean Corpuscular HGB Conc 33.7 % (30-36); Mean Corpuscular Hemoglobin 28.7 PG (26-34); Monocytes Absolute Auto 700 /uL (0-900); Monocytes Percent Auto 6.9 % (3-14); Neutrophils Absolute Auto 7200 /uL (1500-7000); Neutrophils Percent Auto 73.1 % (50-75); Platelet Count 243 X10^3/uL (150-400); Red Cell Distribution Width 17.1 % (11.6-14.8); White Blood Cell Count 9.9 X10^3/uL (4.5-11.0)
[2021-08-19] MEDS: CITRIC ACID/SODIUM CITRATE 15 ML SOLUTION 30 ML PO (07:49)
[2021-08-19] MEDS: LACTATED RINGERS 1,000 ML 100 ML IV ×2 (07:49→08:52)
[2021-08-19] MEDS: CLINDAMYCIN 900 MG/50 ML PIGGYBACK 50 MG IV (08:12)
[2021-08-19] MEDS: SODIUM CHLORIDE 0.9% IV (08:16)
[2021-08-19] MEDS: GENTAMICIN IV (08:16)
--- NOTE | 2021-08-19 08:53 | SUR.OPER ---
viable female baby delivered at 0840. Placenta delivered and sent with cord blood to L&D with the baby.
[2021-08-19] MEDS: KETOROLAC 30 MG/ML VIAL IV ×2 (09:52→16:00)
[2021-08-19] MEDS: ONDANSETRON 4 MG/2 ML INJ IV (12:40)
[2021-08-19] MEDS: METOCLOPRAMIDE 10 MG/2 ML INJ IV (17:04)
[2021-08-19] MEDS: LACTATED RINGERS 1,000 ML 1000 ML IV (17:05)
[2021-08-19] MEDS: ACETAMINOPHEN 325 MG TABLET 650 MG PO (18:28)
[2021-08-20] MEDS: ACETAMINOPHEN 325 MG TABLET 650 MG PO ×2 (03:11→12:19)
[2021-08-20 05:42] LABS: Hematocrit 30.4 % (36-46); Hemoglobin 10.3 g/dL (12.0-16.0)
[2021-08-20] MEDS: IBUPROFEN 600 MG TABLET PO ×2 (07:00→12:54)
--- NOTE | 2021-08-20 09:40 | PM.OBDS.1 ---
Discharge Providers Provider Date of admission: 08/19/21 05:37 Discharge Date: 08/20/21 Primary care physician: Osmin Amin MD Consults: 08/19/21 09:18 Consult to Certified Credit Counselor Routine Comment: Discharge provider: Tami Austin MD Summary Hospital Course Date Patient Seen: 08/20/21 Time Patient Seen: 08:15 Diagnoses: 1.? Status post r/LTCS at 39w3d 2.? 3.? Polyhydramnios, mild, asymptomatic, post-COVID 4.? Fallon's Thyroiditis, euthyroid 5.? History of COVID during third trimester, resolved 6.? Surrogate Hospital Course: Unremarkable. Mother is well. Tolerating full diet with no nausea vomiting. Ambulating well. Lochia less than menses. On day of discharge, she is afebrile with stable vital signs throughout. Status at Discharge Cognitive/behavioral status at discharge: at baseline, oriented Functional status at discharge: independent ambulation Overall status at discharge: patient is progressing back to baseline Time Spent with Patient Time attestation: Total time spent providing and/or coordinating discharge services: 35 minutes. Objective Labs Result Diagrams: 08/20/21 05:14 Labs: Laboratory Results - last 24 hr 08/20/21 05:14 Hgb 10.3 L Hct 30.4 L Exam Vital Signs (past 8 hours): Oxygen Delivery Method Room Air Narrative Exam Narrative: General: NAD Skin: Color unremarkable, no rash nor lesions HEENT: Neck supple with midline trachea Lungs: CTAB Heart: Normal rate and regular rhythm, S1, S2 normal, no murmurs, click, rub or gallop Abdomen: FF, U-1, soft, non-tender, +BS, incision with dressing in place, c/d/i Extremities: No edema, no cyanosis Discharge Plan Discharge Plan Patient Disposition: Home Provider Discharge Comment: Follow up [address] Austin, 08/06, 11:00 am check-in. Discharge orders & Medications Prescriptions: New hydrocodone-acetaminophen 5-325 mg Tablet 1 tab PO Q4H PRN (Reason: Pain, Moderate (4-6)) Qty: 15 0RF ibuprofen 600 mg Tablet 600 mg PO Q6H PRN (Reason: Fever/Mild Pain (1-3)) Qty: 60 3RF Prenatabs Rx 29 mg iron- 1 mg Tablet 1 tab PO DAILY Qty: 90 3RF Continued [ Rx 1] 1 tab PO QDAY Qty: 0 0RF Follow up/Referrals: Tami Austin MD [Physician] - 2 Weeks (09/03 [address] Austin) Osmin Amin MD [Primary Care Provider] - Diet/Activity/Treatments Diet: Diet as Tolerated Activity: 1. Routine care 2. No driving for 2 weeks. 3. Call or return for uncontrolled pain, fever, intractable nausea or vomiting, trouble with urination, heavy vaginal bleeding greater than 1 pad per hour, suicidal/homicidal thoughts, signs or symptoms of infection, or any other concerns. Skin/Wound/Dressing Care Report to your healthcare provider any signs of infection, such as:: chills, fever, increased pain, unusual drainage and unusual redness Visit Report/Discharge Packet Instructions: DI for Stand Alone Forms: Discharge: Care Discharge Data Primary Care Provider: Osmin Amin
[2021-08-20 12:41] VITALS: BP 113/61; PULSE 68; RESP 16; TEMP 37.3
== END 2021-08-20 15:00 | disposition home or self-care (01) | DRG 788 ==
PROVIDERS: Admitting Provider Student in an Organized Health Care Education/Training Program; PCP Family Medicine; Referring Provider Student in an Organized Health Care Education/Training Program; Visit Provider Student in an Organized Health Care Education/Training Program
PROC: (CPT 59514; principal; 2021-08-19 07:45)
DX: O99.284 Endocrine, nutritional and metabolic diseases complicating childbirth (principal); Z3A.39 39 weeks gestation of pregnancy; Z37.0 Single live birth; E06.3 Autoimmune thyroiditis; Z86.16 Personal history of COVID-19; O40.3XX0 Polyhydramnios, third trimester, not applicable or unspecified
CPT/HCPCS: 36415; 59050; 59514; 85014; 85018; 85025; 86850; 86900; 86901; J1885; J2274; J2405; J2590; J2765